=== PATIENT | male | born 1960 | race Caucasian/White ===

== ENCOUNTER 2018-07-09 12:25 | Emergency (ER) | payer OTHER ==
[~2018-07-09] VITALS: Ht 188 cm; Wt 95.3 kg
--- OUTSIDE RECORDS SUMMARY | 2018-07-09 12:30 | XMS REPORT | Continuity of Care Document ---
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 Encounters ACCT No. Visit Date/Time Discharge Status Pt. Type Provider Facility Loc./Unit Complaint [id number] 07/02/2017 10:50:19 07/02/2017 23:59:59 CLS Outpatient [facility] emg bilateral lower [id number] 05/28/2017 09:30:07 05/28/2017 23:59:59 CLS Outpatient [facility] [id number] 04/01/2017 16:20:00 04/01/2017 23:59:59 CLS Outpatient [facility] [id number] 03/19/2017 11:42:03 03/19/2017 23:59:59 CLS Outpatient [facility] consult neuropaythy leg [id number] 03/11/2017 11:18:00 03/11/2017 23:59:59 CLS Outpatient [facility] [id number] 03/11/2017 00:00:00 03/11/2017 23:59:59 CLS Outpatient Scanned Documents [id number] 07/24/2016 16:38:00 07/24/2016 23:59:59 CLS Outpatient [id number] 04/01/2017 16:20:21 ACT Document Registration [id number] 02/25/2015 07:48:00 02/25/2015 23:59:00 DIS Outpatient Pradip Salvador Guarantor/ person ENC COLON
[2018-07-09] MEDS ORDERED: METOPROLOL (12:38)
[2018-07-09] MEDS ORDERED: [UNRECOGNIZED DRUG - OTHER] (12:38)
[2018-07-09 12:44] LABS: BASOPHILS # (AUTO) 0.1 10^3/uL (0.0-0.1); BASOPHILS % (AUTO) 1 % (0-10); EOSINOPHILS # (AUTO) 0.2 10^3/uL (0.0-0.3); EOSINOPHILS % (AUTO) 4 % (0-10); HEMATOCRIT 51 % (40-54); HEMOGLOBIN 17.9 G/DL (13.3-17.7); LYMPHOCYTES # (AUTO) 1.9 X 10^3 (1.0-4.0); LYMPHOCYTES % (AUTO) 35 % (12-44); MEAN CORPUSCULAR HEMOGLOBIN 31 PG (25-34); MEAN CORPUSCULAR HGB CONC 35 G/DL (32-36); MEAN CORPUSCULAR VOLUME 89 FL (80-99); MEAN PLATELET VOLUME 9.6 FL (7.4-10.4); MONOCYTES # (AUTO) 0.6 X 10^3 (0.0-1.0); MONOCYTES % (AUTO) 11 % (0-12); NEUTROPHILS # (AUTO) 2.6 X 10^3 (1.8-7.8); NEUTROPHILS % (AUTO) 49 % (42-75); PLATELET COUNT 199 10^3/uL (130-400); RED BLOOD COUNT 5.75 10^6/uL (4.35-5.85); RED CELL DISTRIBUTION WIDTH 13.4 % (10.0-14.5); WHITE BLOOD COUNT 5.4 10^3/uL (4.3-11.0)
[2018-07-09] MEDS ORDERED: NITROGLYCERIN 0.4 MG SL TABS BTL 25'S SL ONE (12:45)
[2018-07-09] MEDS ORDERED: ASPIRIN 81 MG CHEW (CHILDREN'S ASA) PO ONE (12:45)
--- NOTE | 2018-07-09 12:47 | ED Chest Pain ---
General Chief Complaint: Chest Pain Stated Complaint: CP Nursing Triage Note: ARRIVED VIA AMB TO ROOM 03. COMPLAINS OF CHEST PAIN STARTING THIS AM. Nursing Sepsis Screen: No Definite Risk Source: patient, family () Exam Limitations: no limitations History of Present Illness Date Seen by Provider: Jul 09, 2018 Time Seen by Provider: 12:25 Initial Comments Patient is a 57-year-old male who presents to the emergency room POV with complaints of left-sided substernal chest pain that radiates to the left jaw and a warm sensation to his chest that started at 0600 this morning. He reports that in the past he had elevated blood pressure that he takes metoprolol from time to time and a few runs of A. fib. He denies taking any anticoagulants for his A. fib. He reports that he is in town for a wedding that he resides in [facility]. He reports that the pain waxes and wanes and has times where it is very sharp. Denies shortness of breath, nausea, dizziness, syncopal episodes. Timing/Duration: 4-6 hours Severity/Quality: moderate Location: substernal Radiation: jaw (left) Activities at Onset: sleep Prior CP/Workup: no prior chest pain ASA po PRODUCT PLANNER: No NTG SL PRODUCT PLANNER: No Associated Symptoms: denies symptoms Allergies and Home Medications Allergies Coded Allergies: No Known Drug Allergies (Unverified , 07/09/18) Patient Home Medication List Home Medication List Reviewed: Yes Review of Systems Review of Systems Constitutional: see HPI; No chills, No fever Cardiovascular: See HPI, Chest Pain All Other Systems Reviewed Negative Unless Noted: Yes Past Vivdkyp-Puhdxz-Qjtygb Hx Past Med/Social Hx: Reviewed Nursing Past Med/Soc Hx Patient Social History Alcohol Use: Occasionally Uses Recreational Drug Use: No Smoking Status: Never a Smoker Recent Foreign Travel: No Contact w/Someone Who Travel: No Recent Infectious Disease Expo: No Past Medical History Surgeries: No Respiratory: No Cardiac: Yes Atrial Fibrillation, Hypertension Neurological: No Genitourinary: No Gastrointestinal: No Musculoskeletal: No Endocrine: No HEENT: No Cancer: No Psychosocial: No Integumentary: No Family Medical History Reviewed Nursing Family Hx Physical Exam Vital Signs Vital Signs - First Documented 07/09/18 12:27 Pulse 53 Resp 16 B/P (MAP) 201/119 (146) Pulse Ox 99 O2 Delivery Room Air Capillary Refill : Less Than 3 Seconds Height, Weight, BMI Height: 6'2.00" Weight: 210lbs. oz. 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 Norm as Tested Skin: Normal Color, Warm/Dry Progress/Results/Core Measures Results/Orders Lab Results Laboratory Tests Test 07/09/18 12:30 Range/Units White Blood Count 5.4 4.3-11.0 10^3/uL Red Blood Count 5.75 4.35-5.85 10^6/uL Hemoglobin 17.9 H 13.3-17.7 G/DL Hematocrit 51 40-54 % Mean Corpuscular Volume 89 80-99 FL Mean Corpuscular Hemoglobin 31 25-34 PG Mean Corpuscular Hemoglobin Concent 35 32-36 G/DL Red Cell Distribution Width 13.4 10.0-14.5 % Platelet Count 199 130-400 10^3/uL Mean Platelet Volume 9.6 7.4-10.4 FL Neutrophils (%) (Auto) 49 42-75 % Lymphocytes (%) (Auto) 35 12-44 % Monocytes (%) (Auto) 11 0-12 % Eosinophils (%) (Auto) 4 0-10 % Basophils (%) (Auto) 1 0-10 % Neutrophils # (Auto) 2.6 1.8-7.8 X 10^3 Lymphocytes # (Auto) 1.9 1.0-4.0 X 10^3 Monocytes # (Auto) 0.6 0.0-1.0 X 10^3 Eosinophils # (Auto) 0.2 0.0-0.3 10^3/uL Basophils # (Auto) 0.1 0.0-0.1 10^3/uL Prothrombin Time 12.5 12.2-14.7 SEC INR Comment 0.9 0.8-1.4 Activated Partial Thromboplast Time 28 24-35 SEC D-Dimer 0.49 0.00-0.49 UG/ML Sodium Level 137 135-145 MMOL/L Potassium Level 4.2 3.6-5.0 MMOL/L Chloride Level 98 98-107 MMOL/L Carbon Dioxide Level 25 21-32 MMOL/L Anion Gap 14 5-14 MMOL/L Blood Urea Nitrogen 13 7-18 MG/DL Creatinine 1.00 0.60-1.30 MG/DL Estimat Glomerular Filtration Rate > 60 BUN/Creatinine Ratio 13 Glucose Level 108 H 70-105 MG/DL Calcium Level 10.0 8.5-10.1 MG/DL Corrected Calcium 8.5-10.1 MG/DL Magnesium Level 2.3 1.8-2.4 MG/DL Total Bilirubin 0.9 0.1-1.0 MG/DL Aspartate Amino Transf (AST/SGOT) 22 5-34 U/L Alanine Aminotransferase (ALT/SGPT) 24 0-55 U/L Alkaline Phosphatase 74 40-136 U/L Myoglobin 35.7 10.0-92.0 NG/ML Troponin I < 0.30 <0.30 NG/ML B-Type Natriuretic Peptide 13.4 <100.0 PG/ML Total Protein 8.4 H 6.4-8.2 GM/DL Albumin 5.1 H 3.2-4.5 GM/DL My Orders Orders - BERNOT,PRITI Cbc With Automated Diff (07/09/18 12:34) Magnesium (07/09/18 12:34) Ekg Tracing (07/09/18 12:34) Cardiac Profile 1 (07/09/18 12:34) Comprehensive Metabolic Panel (07/09/18 12:34) Myoglobin Serum (07/09/18 12:34) Protime With Inr (07/09/18 12:34) Partial Thromboplastin Time (07/09/18 12:34) O2 (07/09/18 12:34) Monitor-Rhythm Ecg Trace Only (07/09/18 12:34) Saline Lock/Iv-Start (07/09/18 12:34) BNP (07/09/18 12:34) Fibrin Degradation Products (07/09/18 12:34) O2 (07/09/18 12:34) Saline Lock/Iv-Start (07/09/18 12:34) Aspirin Chewable Tablet (Baby Aspirin Ch (07/09/18 12:45) Nitroglycerin 0.4 Mg Btl 25's (Nitrostat (07/09/18 12:45) Antacid Suspension (Mylanta Suspension (07/09/18 13:30) Medications Given in ED Vital Signs/I&O 07/09/18 07/09/18 12:27 13:53 Pulse 53 40 Resp 16 16 B/P (MAP) 201/119 (146) 146/84 Pulse Ox 99 97 O2 Delivery Room Air Room Air Blood Pressure Mean: 146 Progress Progress Note : Time: 13:00 Progress Note I have seen and evaluated the patient. Patient has refused his chest x-ray. His heart rate has dropped into the low 30s at this time. Second EKG has been ordered. Patient's pain is down to a 1-2 after the second nitroglycerin. He reports feeling of indigestion at this time. Informed him of my plan to call staff technologist and admitting physician Dr. Szymanski he agrees with plan at this time. He also asked me to call Dr. Montesinos his personal friend to give him an update. 1315: Spoke to Dr. Dent at this time he agrees with plan for admission and consult his services. 1322: Spoke to Dr. Szymanski she agrees with accepting the patient for admission. 1325: I have informed Dr. Montesinos as the patient wished. He stated he will be coming to see the patient as a courtesy. 1330: The patient refuses to be admitted at this time. He states he wants to follow-up with his doctor at home. His heart rate is still in the low 40s in periodically drops down into the 30s. He is still having intermittent chest pain. He refused the Mylanta that was ordered for his indigestion and took some Tums of his friends. 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 AMA papers were signed. EKG : EKG Time: 12:25 Rate: 53 Rhythm: Normal Sinus Intervals: Normal ECG Impression: 1st Degree AV Block Comment Right bundle-branch block. EKG was reviewed by Dr. Coronel and he agrees with above indicated. Departure Impression Primary Impression: Chest pain Additional Impressions: Left against medical advice Bradycardia Disposition: 01 HOME, SELF-CARE Condition: Against Medical Advice Departure-Patient Inst. Decision time for Depature: 13:41 Referrals: NO,LOCAL PHYSICIAN (PCP) Primary Care Physician Patient Instructions: Chest Pain (DC) Add. Discharge Instructions: I believe you should be admitted the hospital for further evaluation. Follow-up with her primary care provider within 1 week for further evaluation. Call first thing Wednesday morning for an appointment time. Return back to the emergency room should she have any chest pain, shortness of breath, worsening symptoms, or any other concerns as needed. All discharge instructions reviewed with patient and/ or family. Voiced understanding. ECG Impression ECG Initial ECG Impression Date: Jul 09, 2018 Initial ECG Impression Time: 13:01 Initial ECG Rate: 35 Initial ECG Rhythm: Normal Sinus Initial ECG Intervals: Normal Initial ECG Impression: Sinus Bradycardia, 1st Degree AV Block Initial ECG Comparisson: Changed Comment Dr. Loera reviewed EKG and agree with above as indicated. PRITI JACOBSON Jul 09, 2018 12:47
[2018-07-09 12:53] LABS: INR 0.9 (0.8-1.4); PROTHROMBIN TIME PATIENT 12.5 SEC (12.2-14.7)
[2018-07-09 12:59] LABS: ALANINE AMINOTRANSFERASE 24 U/L (0-55); ALBUMIN 5.1 GM/DL (3.2-4.5); ALKALINE PHOSPHATASE 74 U/L (40-136); BILIRUBIN,TOTAL 0.9 MG/DL (0.1-1.0); BUN/CREATININE RATIO 13; CARBON DIOXIDE 25 MMOL/L (21-32); CHLORIDE 98 MMOL/L (98-107); GFR ESTIMATED > 60; GLUCOSE 108 MG/DL (70-105); MAGNESIUM 2.3 MG/DL (1.8-2.4); POTASSIUM 4.2 MMOL/L (3.6-5.0); SODIUM 137 MMOL/L (135-145); TOTAL PROTEIN 8.4 GM/DL (6.4-8.2)
[2018-07-09 13:06] LABS: MYOGLOBIN SERUM 35.7 NG/ML (10.0-92.0)
[2018-07-09] MEDS ORDERED: ANTACID SUSP 30 ML UDC (MYLANTA) PO ONE (13:30)
[2018-07-09 13:53] VITALS: BP 146/84
== END 2018-07-09 13:53 | disposition home or self-care (01) ==
LOC: ER 12:27
DX: R07.9 Chest pain, unspecified (principal); R00.1 Bradycardia, unspecified; I10 Essential (primary) hypertension; I48.91 Unspecified atrial fibrillation; Z91.14 Patient's other noncompliance with medication regimen
CPT/HCPCS: 36415; 80053; 83735; 83874; 83880; 84484; 85025; 85379; 85610; 85730; 93005; 93041